=== PATIENT | female | born 1955 | race Caucasian/White ===

== ENCOUNTER 2016-07-11 10:04 | Emergency (ER) | payer OTHER ==
[2016-07-11 10:40] VITALS: BP 108/79
--- NOTE | 2016-07-11 11:38 | EDM.PDOC ---
ED HISTORY OF PRESENT ILLNESS - General Chief Complaint: Respiratory Problem Stated Complaint: POSSIBLE PNEUMONIA Time Seen by Provider: 07/11/16 10:05 Source: Reports: Patient History Limitations: Reports: No limitations - History of Present Illness INITIAL COMMENTS - FREE TEXT/NARRATIVE: According to patient she has been having nasal congestion and cough for the past 3 days now. Cough gets worse if she lyes down. Also complaints of frontal headache. Sputum is clear to mucoid. She has low grade fever and hence she did come in today to make sure she does not have pneumonia. No wheezing, shortness of breath. No ear ache. no sore throat. no nausea or vomiting. tolerating diet well. 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 right shoulder rotator cuff repair with biceps repair and bone spur removal Oncologic Surgical History: Reports: Biopsy of breast, Lumpectomy Social & Family History - Tobacco Use Smoking Status *Q: Former Smoker Second Hand Smoke Exposure: No - Recreational Drug Use Recreational Drug Use: No ED ROS GENERAL - Review of Systems Review Of Systems: See Below Constitutional: Reports: fever, chills. Denies: fatigue, night sweats HEENT: Reports: Rhinitis, Sinus problem. Denies: Ear discharge, Eye discharge, Throat pain Respiratory: Reports: Cough, Sputum. Denies: Shortness of Breath, Wheezing Cardiovascular: Denies: Chest pain, Lightheadedness GI/Abdominal: Denies: Abdominal pain, Nausea, Vomiting : Denies: discharge, dysuria Musculoskeletal: Denies: joint pain, joint swelling Skin: Denies: pruritis, rash Neurological: Denies: Confusion, Dizziness, Seizure, Syncope Psychiatric: Denies: Anxiety, Confusion, Cravings Hematologic/Lymphatic: Denies: anemia, easy bleeding ED EXAM, GENERAL - Physical Exam Exam: See Below Exam Limited By: No limitations General Appearance: alert, WD/WN, no apparent distress Eye Exam: bilateral eye: EOMI, PERRL Ears: normal external exam, normal canal, hearing grossly normal, normal TMs Ear Exam: bilateral ear: auricle normal, canal normal, TM normal Nose: nasal drainage (mucoid) Throat/Mouth: Normal inspection, Normal lips, Normal teeth, Normal gums, Normal oropharynx, Normal voice, No airway compromise, Other Head: atraumatic, normocephalic, sinus tenderness (both frontal), other (mucoid post nasal drip seen.) Neck: normal inspection, supple, non-tender, full range of motion Respiratory/Chest: no respiratory distress, lungs clear, normal breath sounds, no accessory muscle use, chest non-tender Cardiovascular: normal peripheral pulses, regular rate, rhythm, no edema, no gallop, no JVD, no murmur, no rub Course - Vital Signs Text/Narrative:: CBC appears normal. Her chest Xray is normal. Also she clinical exam shows frontal sinus tenderness with PND. lungs are clear. Pt reassured that she has acute viral frontal sinusitis. Advised rest and hydration. Steam inhalations 2- 3 times daily. Zyrtec 10mg daily. Vit C 1000mg daily. If symptoms worsen or linger on for more than 1 wk needs to be seen in the clinic. Last Recorded V/S: Last Vital Signs Temp 97.8 F 07/11/16 10:37 Pulse 101 H 07/11/16 10:37 Resp 20 07/11/16 10:37 BP 108/79 07/11/16 10:37 Pulse Ox 97 07/11/16 10:37 - Orders/Labs/Meds Orders: Active Orders 24 hr Category Date Time Status Chest 2V [CR] Stat Exams 07/11/16 10:54 Ordered Labs: Laboratory Tests 07/11/16 Range/Units 11:00 WBC 10.6 D (4.0-11.0) K/uL RBC 4.79 (3.80-5.80) M/uL Hgb 13.9 (11.5-16.5) g/dL Hct 39.6 (37.0-47.0) % MCV 83 (76-96) fL MCH 29.0 (27.0-32.0) pg MCHC 35.1 H (31.0-35.0) g/dL RDW 13.3 (11.0-16.0) % Plt Count 238 (150-500) K/uL MPV 9.1 (6.0-10.0) fL Neut % (Auto) 71.3 H (45.0-70.0) % Lymph % (Auto) 17.4 L (20.0-40.0) % [place] % (Auto) 10.5 H (3.0-10.0) % Eos % (Auto) 0.6 L (1.0-5.0) % Baso % (Auto) 0.2 (0.0-0.5) % Neut # 7.57 H (2.00-7.50) K/uL Lymph # 1.85 (1.50-4.00) K/uL [place] # 1.11 H (0.20-0.80) K/uL Eos # 0.06 (0.04-0.40) K/uL Baso # 0.02 (0.02-0.10) K/uL Departure - Departure Time of Disposition: 11:00 Disposition: Home, Self-Care 01 Condition: good Clinical Impression: Acute frontal sinusitis Instructions: Sinusitis, Adult Referrals: PCP,None [Primary Care Provider] - Forms: ED Department Discharge Additional Instructions: Use Zyrtec or Claritin daily. Use steam with menthol or vix vapor rub 1-2 hours before bedtime to help with secretions. Start taking Vitamin C 1000mg daily to help infection for 7-10 days. Drink plenty of fluids to staty hydrated. - Problem List & Annotations (1) Acute frontal sinusitis SNOMED Code(s): 11445775 Code(s): J01.10 - ACUTE FRONTAL SINUSITIS, UNSPECIFIED Status: Acute Current Visit: Yes - Problem List Review Problem List Initiated/Reviewed/Updated: Yes - My Orders Last 24 Hours: My Active Orders 07/11/16 10:54 Chest 2V [CR] Stat - Assessment/Plan Last 24 Hours: My Active Orders 07/11/16 10:54 Chest 2V [CR] Stat Assessment:: Acute Viral frontal sinusitis Plan: CBC appears normal. Her chest Xray is normal. Also she clinical exam shows frontal sinus tenderness with PND. lungs are clear. Pt reassured that she has acute viral frontal sinusitis. Advised rest and hydration. Steam inhalations 2- 3 times daily. Zyrtec 10mg daily. Vit C 1000mg daily. If symptoms worsen or linger on for more than 1 wk needs to be seen in the clinic.
--- NOTE | 2016-07-11 22:19 | CR ---
DATE OF SERVICE: 07/11/2016 CLINICAL DATA: Cough with fever. PA AND LATERAL CHEST No priors. The heart size is normal. The lungs are mildly hyperexpanded but clear. The exam is otherwise negative. [id number] MTDD
== END 2016-07-11 11:32 | disposition home or self-care (01) ==
LOC: LB.ED 10:04
DX: J01.10 Acute frontal sinusitis, unspecified (principal); E78.00 Pure hypercholesterolemia, unspecified; Z87.891 Personal history of nicotine dependence; Z91.030 Bee allergy status
CPT/HCPCS: 36415; 71020; 85025; 99284

== ENCOUNTER 2017-01-07 19:19 | Emergency (ER) | payer OTHER ==
--- NOTE | 2017-01-08 01:03 | ER ---
HISTORY OF PRESENT ILLNESS: A 61-year-old lady here because of a bee sting to the right upper arm. This happened yesterday. The patient states she did take an EpiPen x1. She never did have any breathing issues such as shortness of breath, wheezing, or coughing. She states that her concern today is that she may be developing an infection. It has been extremely itchy. She has been taking Benadryl a couple of times, 25 mg per dose, twice yesterday and once this morning. The patient states that she otherwise feels fine. OBJECTIVE: GENERAL APPEARANCE: The patient is awake and alert. No obvious distress. VITAL SIGNS: Reviewed as listed. SKIN: Examining the right upper arm reveals a macular erythematous area that is circular and about the size of the palm of my hand, 4 inches or so in diameter. Centrally located, there is a small abrasion. There are no remnants of the stinger at this point. The area is slightly warm to touch. DIAGNOSIS: Bee sting to right upper arm with local inflammation. TREATMENT PLAN: I advised the patient to increase her Benadryl use. If it does not make her drowsy, she can take 50 mg every six hours until her symptoms are definitely improving and then wean off it. I advised the patient to use [id number] cortisone cream topically to the area of inflammation three to four times a day for a couple of days and then as needed. She can continue with an ice pack to the area for about another day as well. Followup is p.r.n. if her symptoms should get worse. CRS/MODL /[id number]
[2017-01-08 04:13] VITALS: BP 159/80
== END 2017-01-07 19:55 | disposition home or self-care (01) ==
LOC: LB.ED 19:19
DX: T63.441A Toxic effect of venom of bees, accidental (unintentional), initial encounter (principal); L08.9 Local infection of the skin and subcutaneous tissue, unspecified
CPT/HCPCS: 99282

== ENCOUNTER 2017-11-13 17:10 | Observation (INO) | payer OTHER ==
[2017-11-13] MEDS ORDERED: methylPREDNISolone Sodium Succinate 125 MG/2 ML SDV ONE (18:10)
[2017-11-13] MEDS ORDERED: diphenhydrAMINE 50 MG/ML SDV ONE (18:10)
[2017-11-13] MEDS: Sodium Chloride 0.9% 1,000 ML IV SCH ×2 (20:40→20:44)
[2017-11-13] MEDS ORDERED: diphenhydrAMINE 50 MG Cap ONE (21:23)
[2017-11-13] MEDS ORDERED: predniSONE 20 MG Tab ONE ×2 (21:23→22:30)
[2017-11-13 23:13] VITALS: BP 163/66
--- NOTE | 2017-11-14 07:30 | ER ---
DATE OF SERVICE: 11/13/2017 This 61-year-old woman was stung just above her upper lip by a hornet. 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 Immediately, she did an EpiPen and she gave herself 25 mg of Benadryl. She presents to the emergency room complaining of feeling numb in her lip and in her tongue and initially with some chest heaviness. PHYSICAL EXAMINATION: LUNGS: Good air movement. No wheezes. HEART: Regular rate and rhythm. ABDOMEN: Soft. No localized tenderness. HEENT: Her lip, she does have an area where the sting is just above her right lip border. Her throat, I do not see any swelling. The area is indurated and somewhat warm. ABDOMEN: Soft. No localized tenderness. No guarding. No rebound. Back: No CVA tenderness. ASSESSMENT: She received Solu-Medrol 125 mg, Benadryl 25 mg, and 1 L of normal saline in the emergency room. She was observed for 5 to 6 hours and did quite well with no rebound symptoms. I sent her home on prednisone 20 b.i.d. and Benadryl 25 q.6. She is continue to use EpiPen in the event she gets stung again. LILY/KIZZY /[id number] EMILIE
== END 2017-11-13 22:30 | disposition home or self-care (01) ==
LOC: LB.ED 17:10 → UNDOADMOB 18:15 → LB.MS 18:15 → UNDODISOB 22:30
PROVIDERS: ADMIT Family Medicine; ATTEND Family Medicine
DX: T63.451A Toxic effect of venom of hornets, accidental (unintentional), initial encounter (principal); Z79.82 Long term (current) use of aspirin; Z79.899 Other long term (current) drug therapy
CPT/HCPCS: 99281; 99283; A9270-GY; G0378; J1200; J2930; J7030

== ENCOUNTER 2017-11-18 07:06 | Observation (INO) | payer OTHER ==
[2017-11-18] MEDS ORDERED: Sodium Chloride 0.9% 10 ML Syringe FLUSH PRN (07:25)
--- NOTE | 2017-11-18 07:29 | EDM.PDOC ---
ED HPI GENERAL MEDICAL PROBLEM - General Chief Complaint: Chest Pain Stated Complaint: CHEST PAIN Time Seen by Provider: 11/18/17 07:20 Source of Information: Reports: Patient, Family, RN History Limitations: Reports: No Limitations - History of Present Illness INITIAL COMMENTS - FREE TEXT/NARRATIVE: 61 yr female presents with chest pain. States she was walking today and started having chest pain and she came into the ER. States the pain went up into the throat and felt tightness between shoulder blades. She is taking Simvastatin, baby ASA and Prednisone bid. today is her last day of the prednisone. The EKG shows NSR and no BBB. Will get set of labs for cardiac concerns. Pt states no pain now. BP elevated on admit and is improved now. Will give ASA 324 mg PO, chewed, now. 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 Denies: Edema ED EXAM, GENERAL - Physical Exam Exam: See Below Exam Limited By: No Limitations General Appearance: Alert, No Apparent Distress Nose: Normal Inspection Throat/Mouth: Normal Inspection, No Airway Compromise Head: Atraumatic, Normocephalic Neck: Normal Inspection, Supple, Non-Tender Respiratory/Chest: No Respiratory Distress, Lungs Clear Cardiovascular: Normal Peripheral Pulses, Regular Rate, Rhythm, No Edema Extremities: Normal Inspection, No Pedal Edema, Normal Capillary Refill Neurological: Alert, Oriented, CN II-XII Intact Psychiatric: Normal Affect, Normal Mood Skin Exam: Warm, Dry, Normal Color Course - Vital Signs Last Recorded V/S: Last Vital Signs Temp 97.6 F 11/18/17 14:00 Pulse 68 11/18/17 14:00 Resp 17 11/18/17 10:57 BP 150/70 H 11/18/17 14:00 Pulse Ox 95 11/18/17 14:00 - Orders/Labs/Meds Orders: Active Orders 24 hr Category Date Time Status Cardiac Monitoring [RC] .As Directed Care 11/18/17 07:25 Active EKG Documentation Completion [RC] ASDIRECTED Care 11/18/17 07:26 Active Oxygen Therapy [RC] PRN Care 11/18/17 07:25 Active Chest 1V Frontal [CR] Stat Exams 11/18/17 07:53 Taken Sodium Chloride 0.9% [Saline Flush] Med 11/18/17 07:25 Active 10 ml FLUSH ASDIRECTED PRN Saline Lock Insert [OM.PC] Stat Oth 11/18/17 07:25 Ordered Medication Orders Acetaminophen (Tylenol) 650 mg PO Q4H PRN PRN Reason: analgesia/fever Prednisone 20 Mg (Tablet) 20 mg PO BID BELA Last Admin: 11/18/17 11:44 Dose: 20 mg Non-Formulary Medication (Simvastatin [Simvastatin]) 10 mg PO QPM BELA Sodium Chloride (Saline Flush) 10 ml FLUSH ASDIRECTED PRN PRN Reason: Keep Vein Open Last Admin: 11/18/17 07:20 Dose: 10 ml Labs: Laboratory Tests 11/18/17 11/18/17 Range/Units 07:25 07:25 WBC 11.4 H (4.0-11.0) K/uL RBC 5.07 (3.80-5.80) M/uL Hgb 14.8 (11.5-16.5) g/dL Hct 42.4 (37.0-47.0) % MCV 84 (76-96) fL MCH 29.2 (27.0-32.0) pg MCHC 34.9 (31.0-35.0) g/dL RDW 13.6 (11.0-16.0) % Plt Count 349 D (150-500) K/uL MPV 9.1 (6.0-10.0) fL Neut % (Auto) 56.7 (45.0-70.0) % Lymph % (Auto) 35.7 (20.0-40.0) % [place] % (Auto) 6.5 (3.0-10.0) % Eos % (Auto) 0.6 L (1.0-5.0) % Baso % (Auto) 0.5 (0.0-0.5) % Neut # (Auto) 6.43 (2.00-7.50) K/uL Lymph # (Auto) 4.06 H (1.50-4.00) K/uL [place] # (Auto) 0.74 (0.20-0.80) K/uL Eos # (Auto) 0.07 (0.04-0.40) K/uL Baso # (Auto) 0.06 (0.02-0.10) K/uL Sodium 140 (136-145) mmol/L Potassium 5.0 (3.5-5.1) mmol/L Chloride 105 (98-107) mmol/L Carbon Dioxide 27.1 (21.0-32.0) mmol/L Anion Gap 12.9 (5.0-15.0) mmol/L BUN 18 D (8-26) mg/dL Creatinine 0.77 (0.55-1.02) mg/dL Est Cr Clr Drug Dosing TNP Estimated GFR (MDRD) > 60 (>60) MLS/MIN BUN/Creatinine Ratio 23.4 (6-25) Glucose 100 (74-100) mg/dL Calcium 9.1 (8.5-10.1) mg/dL Total Bilirubin 0.8 (0.0-1.0) mg/dL AST 35 (15-37) U/L ALT 59 (12-78) U/L Alkaline Phosphatase 63 (46-116) U/L Troponin I < 0.017 (0.000-0.060) ng/mL Total Protein 7.6 (6.4-8.2) g/dL Albumin 4.0 (3.4-5.0) g/dL Globulin 3.6 (2.2-4.2) g/dL Albumin/Globulin Ratio 1.1 (0.8-2.0) Meds: Medications Generic Name Dose Route Start Last Admin Trade Name Freq PRN Reason Stop Dose Admin Acetaminophen 650 mg 11/18/17 08:06 Tylenol PO Q4H PRN analgesia/fever Prednisone 20 Mg 20 mg 11/18/17 08:00 11/18/17 11:44 Tablet PO 20 mg BID BELA Administration Non-Formulary Medication 10 mg 11/18/17 20:00 Simvastatin [Simvastatin] PO QPM BELA Sodium Chloride 10 ml 11/18/17 07:25 11/18/17 07:20 Saline Flush FLUSH 10 ml ASDIRECTED PRN Administration Keep Vein Open Discontinued Medications Generic Name Dose Route Start Last Admin Trade Name Freq PRN Reason Stop Dose Admin Aspirin 324 mg 11/18/17 07:35 11/18/17 07:15 Aspirin PO 11/18/17 07:36 324 mg ONETIME ONE Administration - Re-Assessments/Exams Free Text/Narrative Re-Assessment/Exam: 11/18/17 08:12 Will admit to observation for this chest pain. Initial troponins are negative. Will place on telemetry and monitor heart rate and vital signs. Repeat troponins at 13:00. If these are negative and no return of chest pain, will discharge pt to self care and care of family Free Text/Narrative Re-Assessment/Exam: 11/18/17 14:14 Troponins are negative this afternoon. She is feeling well and no other chest pain. Heart rate is 70's and BP 150/70. Will discharge today and RTC in next 1-2 weeks for follow-up. Recommend monitoring BP occasionally at home Departure - Departure Time of Disposition: 14:16 Disposition: Home, Self-Care 01 Condition: Good Clinical Impression: Chest pain - My Orders Last 24 Hours: My Active Orders 11/18/17 07:25 Cardiac Monitoring [RC] .As Directed Oxygen Therapy [RC] PRN Sodium Chloride 0.9% [Saline Flush] 10 ml FLUSH ASDIRECTED PRN Saline Lock Insert [OM.PC] Stat 11/18/17 07:26 EKG Documentation Completion [RC] ASDIRECTED 11/18/17 07:53 Chest 1V Frontal [CR] Stat - Assessment/Plan Last 24 Hours: My Active Orders 11/18/17 07:25 Cardiac Monitoring [RC] .As Directed Oxygen Therapy [RC] PRN Sodium Chloride 0.9% [Saline Flush] 10 ml FLUSH ASDIRECTED PRN Saline Lock Insert [OM.PC] Stat 11/18/17 07:26 EKG Documentation Completion [RC] ASDIRECTED 11/18/17 07:53 Chest 1V Frontal [CR] Stat
[2017-11-18] MEDS ORDERED: Aspirin 81 MG Tab.Chew PO ONE (07:35)
[2017-11-18] MEDS ORDERED: Acetaminophen 325 MG Tab PO PRN (08:06)
[2017-11-18 14:10] VITALS: BP 150/70
[2017-11-18] MEDS ORDERED: Non-Formulary Medication 1 Each (Simvastatin [Simvastatin] 10 MG) PO SCH (20:00)
--- NOTE | 2017-11-20 17:21 | CR ---
DATE OF SERVICE: 11/18/2017 CLINICAL DATA: Chest pain. AP PORTABLE CHEST: Comparison is made to a prior exam dated 07/11/2016. The heart size is normal. The lungs are clear. No changes from the prior exam. No evidence of acute intrathoracic disease. [id number] [facility]
== END 2017-11-18 14:35 | disposition home or self-care (01) ==
LOC: LB.ED 07:06 → INTOOBSV 08:05 → LB.MS 08:05 → UNDOADMIN 08:09 → LB.MS 08:09
PROVIDERS: ADMIT Nurse Practitioner Family; ATTEND Nurse Practitioner Family
DX: R07.9 Chest pain, unspecified (principal); E78.00 Pure hypercholesterolemia, unspecified; Z91.030 Bee allergy status; Z79.82 Long term (current) use of aspirin; Z79.899 Other long term (current) drug therapy
CPT/HCPCS: 36415; 71045; 80053; 84484; 85025; 93005; 99236; 99285-25; A9270-GY; G0378; J7050

== ENCOUNTER 2023-04-14 09:05 | Day surgery (SDC) | payer MEDICARE, OTHER ==
[~2023-04-14 09:05] MED LIST: Metoclopramide 10 MG/2 ML SDV IV PRN; Sodium Chloride 0.9% 1,000 ML IV SCH
[2023-04-14] MEDS ORDERED: Propofol 1,000 MG/100 ML SDV ONE (10:45)
[2023-04-14 11:02] VITALS: BP 110/59; PULSE 67
== END 2023-04-14 13:00 | disposition home or self-care (01) ==
LOC: LB.SDS 09:05
PROVIDERS: ATTEND Surgery
DX: Z12.11 Encounter for screening for malignant neoplasm of colon (principal); K29.50 Unspecified chronic gastritis without bleeding; K20.90 Esophagitis, unspecified without bleeding; K44.9 Diaphragmatic hernia without obstruction or gangrene; I10 Essential (primary) hypertension; E78.00 Pure hypercholesterolemia, unspecified
CPT/HCPCS: 88305; 88312; 88342; J2704; J7030

== ENCOUNTER 2024-12-22 15:56 | Emergency (ER) | payer MEDICARE, OTHER ==
[2024-12-22 16:12] VITALS: PULSE 85
[2024-12-22 16:29] LABS: APPEARANCE,URINE CLEAR (CLEAR); GLUCOSE,URINE NEGATIVE (NEGATIVE); OCCULT BLOOD,URINE NEGATIVE (NEGATIVE)
[2024-12-22] MEDS ORDERED: Sodium Chloride 0.9% 10 ML Syringe FLUSH PRN (16:41)
[2024-12-22 16:46] LABS: BASOPHILS ABSOLUTE AUTO 0.06 K/uL (0.02-0.10); BASOPHILS PERCENT AUTO 0.8 % (0.0-0.5); EOSINOPHILS ABSOLUTE AUTO 0.22 K/uL (0.04-0.40); EOSINOPHILS PERCENT AUTO 3.1 % (1.0-5.0); LYMPHOCYTES ABSOLUTE AUTO 2.91 K/uL (1.50-4.00); LYMPHOCYTES PERCENT AUTO 40.9 % (20.0-40.0); MEAN PLATELET VOLUME 8.9 fL (6.0-10.0); MONOCYTES ABSOLUTE AUTO 0.61 K/uL (0.20-0.80); MONOCYTES PERCENT AUTO 8.6 % (3.0-10.0); NEUTROPHILS ABSOLUTE AUTO 3.32 K/uL (2.00-7.50); NEUTROPHILS PERCENT AUTO 46.6 % (45.0-70.0); PLATELET COUNT,PLT 309 K/uL (150-500); RED BLOOD CELL COUNT 4.80 M/uL (3.80-5.80); RED CELL DISTRIBUTION WIDTH 13.4 % (11.0-16.0); WHITE BLOOD CELL COUNT,WBC 7.1 K/uL (4.0-11.0)
[2024-12-22 17:26] LABS: A/G RATIO 1.1 (0.8-2.0); ALANINE AMINOTRANSFERASE,ALT 52.0 U/L (12-78); ASPARTATE AMNIOTRANSFERASE,AST 32.0 U/L (15-37); BILIRUBIN TOTAL 0.5 mg/dL (0.0-1.0); BLOOD UREA NITROGEN,BUN 13.0 mg/dL (8-26); CARBON DIOXIDE,CO2 27.4 mmol/L (21.0-32.0); CHLORIDE,CL 102.0 mmol/L (98-107); CREATININE 0.89 mg/dL (0.55-1.02); EST CRCL DRUG DOSING (CG) 50.79 mL/min; ESTIMATED GFR 70.0 mL/min (>60); GLUCOSE RANDOM 98.0 mg/dL (74-100); POTASSIUM,K 3.4 mmol/L (3.5-5.1); PROTEIN TOTAL,TP 7.3 g/dL (6.4-8.2); SODIUM,NA 135.0 mmol/L (136-145)
[2024-12-22] MEDS: Iopamidol 755 Mg/ML 100 ML Bottle IV SCH (18:33)
[2024-12-22] MEDS: Sodium Chloride 0.9% 50 ML SDV FLUSH ONE (18:33)
[2024-12-22 18:59] VITALS: BP 166/83
== END 2024-12-22 19:20 | disposition home or self-care (01) ==
LOC: LB.ED 15:56
DX: R07.89 Other chest pain (principal); I10 Essential (primary) hypertension; E78.00 Pure hypercholesterolemia, unspecified; Z79.899 Other long term (current) drug therapy; Z79.82 Long term (current) use of aspirin; Z79.1 Long term (current) use of non-steroidal anti-inflammatories (NSAID); Z87.891 Personal history of nicotine dependence; Z91.030 Bee allergy status
CPT/HCPCS: 36415; 71275; 80053; 81003; 84484; 85025; 85379; 93005; 93010; 99284; 99285; Q9967